=== PATIENT | male | born 1960 ===

== ENCOUNTER 2018-10-30 01:41 | Emergency (ER) | payer OTHER ==
[2018-10-30] MEDS ORDERED: Rocuronium 100 MG/10 ML MDV IV ONE (01:42)
[2018-10-30] MEDS ORDERED: Piperacillin/Tazobactam 3.375 GM in Sodium Chloride 0.9% 50 ML IV ONE (01:43)
[2018-10-30] MEDS ORDERED: Sodium Chloride 0.9% 1,000 ML IV SCH (01:45)
--- NOTE | 2018-10-30 01:49 | EDM.PDOC ---
ED HPI GENERAL MEDICAL PROBLEM - General Stated Complaint: amb Time Seen by Provider: 10/30/18 01:47 Source of Information: Reports: Patient - History of Present Illness INITIAL COMMENTS - FREE TEXT/NARRATIVE: HISTORY AND PHYSICAL: History of present illness: []Patient presents via EMS intubated with 6.5 ET tube Apparently he was found outside of the local bar unresponsive with agonal breathing appeared to have aspirated they did provide Narcan with no response He arrives as such, shortly after arrival we did replace 6.5 tube with an 8.0 ET tube chest x-ray to confirm placement Patient had received ADD for ocular own him Versed and succinylcholine prior to arrival Review of systems: As per history of present illness and below otherwise all systems reviewed and negative. Past medical history: As per history of present illness and as reviewed below otherwise noncontributory. Surgical history: As per history of present illness and as reviewed below otherwise noncontributory. Social history: No reported history of drug or alcohol abuse. Family history: As per history of present illness and as reviewed below otherwise noncontributory. Physical exam: HEENT: Atraumatic, normocephalic, pupils reactive, negative for conjunctival pallor or scleral icterus, mucous membranes moist, throat clear, neck supple, nontender, trachea midline. Lungs: Clear to auscultation, breath sounds equal bilaterally, chest nontender. Heart: S1S2, regular, negative for clicks, rubs, or JVD. Abdomen: Soft, nondistended, nontender. Negative for masses or hepatosplenomegaly. Negative for costovertebral tenderness. Pelvis: Stable nontender. Genitourinary: Deferred. Rectal: Deferred. Extremities: Atraumatic, negative for cords or calf pain. Neurovascular unremarkable. Neuro: Awake, alert, oriented. Cranial nerves II through XII unremarkable. Cerebellum unremarkable. Motor and sensory unremarkable throughout. Exam nonfocal. Diagnostics: [CBC CMP UA troponin drug screen Chest 1 view ABG ] Therapeutics: [ normal saline Zosyn Vancomycin Patient transferred [facility] ER excepting ] Impression: [ probable aspiration Intubated ]patient found unresponsive Definitive disposition and diagnosis as appropriate pending reevaluation and review of above. - Related Data Allergies Allergy/AdvReac Type Severity Reaction Status Date / Time Unable to Assess Allergy Unverified 01/05/14 12:46 ED ROS GENERAL - Review of Systems Review Of Systems: See Below ED EXAM, GENERAL - Physical Exam Exam: See Below Course - Orders/Labs/Meds Orders: Active Orders 24 hr Category Date Time Status EKG Documentation Completion [RC] STAT Care 10/30/18 01:43 Active Chest 1V Frontal [CR] Stat Exams 10/30/18 01:43 Ordered ABG [BLOOD GAS ARTERIAL] [BG] Stat Lab 10/30/18 01:45 Ordered CBC WITH AUTO DIFF [HEME] Stat Lab 10/30/18 01:43 Ordered COMPREHENSIVE METABOLIC PN,CMP [CHEM] Stat Lab 10/30/18 01:43 Ordered CULTURE BLOOD [BC] Stat Lab 10/30/18 01:44 Ordered CULTURE BLOOD [BC] Stat Lab 10/30/18 01:44 Ordered DRUG SCREEN, URINE [URCHEM] Stat Lab 10/30/18 01:49 Ordered ETOH [ETHANOL BLOOD MEDICAL] [CHEM] Stat Lab 10/30/18 01:49 Ordered TROPONIN I [CHEM] Stat Lab 10/30/18 01:43 Ordered UA RFX DORI AND CULT IF INDIC [URIN] Stat Lab 10/30/18 01:43 Ordered Piperacillin/Tazobactam [Piperacil-Tazobact] 3.375 gm Med 10/30/18 01:43 Active Sodium Chloride 0.9% [Normal Saline] 50 ml IV ONETIME Sodium Chloride 0.9% [Normal Saline] 1,000 ml Med 10/30/18 01:45 Active IV STAT Vancomycin [Vancocin] 1 gm Med 10/30/18 01:44 Active Sodium Chloride 0.9% [Normal Saline] 250 ml IV ONETIME Blood Culture x2 Reflex Set [OM.PC] Stat Oth 10/30/18 01:43 Ordered Medication Orders Piperacillin Sod/Tazobactam (Sod 3.375 gm/ Sodium Chloride) 50 mls @ 100 mls/ hr IV ONETIME ONE Stop: 10/30/18 02:12 Sodium Chloride (Normal Saline) 1,000 mls @ 125 mls/hr IV STAT [facility] Vancomycin HCl 1 gm/ Sodium (Chloride) 250 mls @ 250 mls/hr IV ONETIME ONE Stop: 10/30/18 02:43 Meds: Medications Generic Name Dose Route Start Last Admin Trade Name Freq PRN Reason Stop Dose Admin Piperacillin Sod/Tazobactam 50 mls @ 100 mls/hr 10/30/18 01:43 Sod 3.375 gm/ Sodium Chloride IV 10/30/18 02:12 ONETIME ONE Sodium Chloride 1,000 mls @ 125 mls/hr 10/30/18 01:45 Normal Saline IV STAT [facility] Vancomycin HCl 1 gm/ Sodium 250 mls @ 250 mls/hr 10/30/18 01:44 Chloride IV 10/30/18 02:43 ONETIME ONE Departure - Departure Time of Disposition: 01:50 Disposition: DC/Tfer to Acute Hospital 02 Condition: Poor Clinical Impression: Unresponsive, Aspiration into lower respiratory tract - Discharge Information - My Orders Last 24 Hours: My Active Orders 10/30/18 01:43 EKG Documentation Completion [RC] STAT Chest 1V Frontal [CR] Stat CBC WITH AUTO DIFF [HEME] Stat COMPREHENSIVE METABOLIC PN,CMP [CHEM] Stat TROPONIN I [CHEM] Stat UA RFX DORI AND CULT IF INDIC [URIN] Stat Piperacillin/Tazobactam [Piperacil-Tazobact] 3.375 gm Sodium Chloride 0.9% [ Normal Saline] 50 ml IV ONETIME Blood Culture x2 Reflex Set [OM.PC] Stat 10/30/18 01:44 CULTURE BLOOD [BC] Stat CULTURE BLOOD [BC] Stat Vancomycin [Vancocin] 1 gm Sodium Chloride 0.9% [Normal Saline] 250 ml IV ONETIME 10/30/18 01:45 ABG [BLOOD GAS ARTERIAL] [BG] Stat Sodium Chloride 0.9% [Normal Saline] 1,000 ml IV STAT 10/30/18 01:49 DRUG SCREEN, URINE [URCHEM] Stat ETOH [ETHANOL BLOOD MEDICAL] [CHEM] Stat - Assessment/Plan Last 24 Hours: My Active Orders 10/30/18 01:43 EKG Documentation Completion [RC] STAT Chest 1V Frontal [CR] Stat CBC WITH AUTO DIFF [HEME] Stat COMPREHENSIVE METABOLIC PN,CMP [CHEM] Stat TROPONIN I [CHEM] Stat UA RFX DORI AND CULT IF INDIC [URIN] Stat Piperacillin/Tazobactam [Piperacil-Tazobact] 3.375 gm Sodium Chloride 0.9% [ Normal Saline] 50 ml IV ONETIME Blood Culture x2 Reflex Set [OM.PC] Stat 10/30/18 01:44 CULTURE BLOOD [BC] Stat CULTURE BLOOD [BC] Stat Vancomycin [Vancocin] 1 gm Sodium Chloride 0.9% [Normal Saline] 250 ml IV ONETIME 10/30/18 01:45 ABG [BLOOD GAS ARTERIAL] [BG] Stat Sodium Chloride 0.9% [Normal Saline] 1,000 ml IV STAT 10/30/18 01:49 DRUG SCREEN, URINE [URCHEM] Stat ETOH [ETHANOL BLOOD MEDICAL] [CHEM] Stat
[2018-10-30] MEDS ORDERED: Midazolam 1 MG/ML 2 ML SDV ONE (01:54)
[2018-10-30] MEDS ORDERED: fentaNYL 100 MCG/2 ML SDV ONE (01:56)
[2018-10-30] MEDS ORDERED: methylPREDNISolone Sodium Succinate 125 MG/2 ML SDV ONE (01:57)
[2018-10-30] MEDS ORDERED: fentaNYL 100 MCG/2 ML SDV IVPUSH ONE (01:58)
[2018-10-30] MEDS ORDERED: Midazolam 1 MG/ML 2 ML SDV IVPUSH ONE (01:58)
[2018-10-30 02:16] LABS: CHLORIDE,CL 101 mmol/L (98-107); SODIUM,NA 137 mmol/L (136-148)
--- NOTE | 2018-10-30 02:24 | PCM.SN ---
- Free Text/Narrative Note: 0130 Called to ER for trauma code pt arrived intubated with a 6.5 tube. Exchanged tube with pediatric bougie with a 8.0 24 at lip. Large amounts of vomit suctioned from back of throat. ETT suctioned and large amounts of thick brown products removed. NS used. See nursing chart for vital signs. Pt given 2 mg of versed and 100 mcg of fentanyl and 50 mg of Rocuronium for sedation. Flight team at bedside. Pt transferred via flight.
--- NOTE | 2018-10-30 02:37 | CR ---
Indication: Intubation Technique: Chest 1 view Comparison: September 23, 2011 Findings/Impression: Endotracheal tube tip terminates 3.6 cm above the level of the moo. A gastric drainage tube tip courses below the level of the left hemidiaphragm. Normal cardiomediastinal silhouette. Minimal patchy atelectasis or infiltrate at the right lung base. No effusion or pneumothorax. No acute osseous abnormality. Dictated by Kelsy Mina MD @ Oct 30 2018 2:33AM Signed by Dr. Kelsy Mina @ Oct 30 2018 2:35AM
[2018-11-01] MEDS ORDERED: methylPREDNISolone Sodium Succinate 125 MG/2 ML SDV IV ONE (02:15)
== END 2018-10-30 02:10 ==
LOC: MW.ED 01:41
DX: R40.20 Unspecified coma (principal); R09.89 Other specified symptoms and signs involving the circulatory and respiratory systems; R40.2432 Glasgow coma scale score 3-8, at arrival to emergency department
CPT/HCPCS: 31500; 36415; 51702; 71045; 80053; 80305; 81001; 84484; 85025; 87040; 93005; 96374; 96375; 99291; G0390; G0480